=== PATIENT | female | born 1930 | race Caucasian/White ===

== ENCOUNTER 2018-06-01 21:58 | Emergency (ER) | payer OTHER ==
[~2018-06-01] VITALS: Ht 149.9 cm; Wt 46.3 kg
[2018-06-01] MEDS ORDERED: [UNRECOGNIZED DRUG - REMARK] (22:08)
[2018-06-01] MEDS ORDERED: [UNRECOGNIZED DRUG - REMARK] (22:08)
--- NOTE | 2018-06-01 22:15 | NUR ---
Patient bib RA. Patient AAOX4. Speech clear, speaks in complete sentences. No neuro deficits noted. Patient brought in for c/o diarrhea for a few days now. Patient has hx of SIBO (small intestinal bacterial overgrowth). Denies any vomiting or nausea. Respiratory even and unlabored, no cough, no sob. No cardiovascular distress noted. Patient in bed lowest position, sr up x2, call light within reach. Patient accompanied by son at bedside. Fall precautions implemented per protocol.
[2018-06-01 22:28] LABS: HEMOGLOBIN 13.1 g/dL (10.9-14.3); PLATELET COUNT (AUTO) 213 K/uL (179-408)
--- NOTE | 2018-06-01 22:30 | NUR ---
Female adjustment clerk accompanied female patient for Dr. Tobar during rectal exam.
[2018-06-01 22:35] LABS: BASOPHILS # (AUTO) 0.1 K/uL (0.0-8.0); BASOPHILS % (AUTO) 0.6 % (0.0-2.0); CARBON DIOXIDE 25 mmol/L (21-32); CHLORIDE 99 mmol/L (98-107); CREATININE 0.9 mg/dL (0.6-1.3); EOSINOPHILS # (AUTO) 0.1 K/uL (0.0-0.7); EOSINOPHILS % (AUTO) 0.7 % (0.0-7.0); GLUCOSE 126 mg/dL (74-106); HEMATOCRIT 39.5 % (31.2-41.9); LYMPHOCYTES % (AUTO) 10.3 % (20.5-51.5); MEAN CORPUSCULAR HEMOGLOBIN 29.6 uug (24.7-32.8); MEAN CORPUSCULAR HGB CONC 33 g/dL (32.3-35.6); MEAN CORPUSCULAR VOLUME 89.8 fL (75.5-95.3); NEUTROPHILS # (AUTO) 7.4 K/uL (1.8-8.9); NEUTROPHILS % (AUTO) 77.4 % (38.5-71.5); POTASSIUM 3.8 mmol/L (3.5-5.1); UREA NITROGEN, BLOOD 19 mg/dL (7-18); WHITE BLOOD COUNT (AUTO) 9.5 K/uL (3.8-11.8)
[2018-06-01 22:41] LABS: ALANINE AMINOTRANSFERASE 39 U/L (14-59); ALKALINE PHOSPHATASE 58 U/L (50-136); ASPARTATE AMINOTRANSFERASE 22 U/L (15-37); BILIRUBIN,DIRECT 0.2 mg/dL (0.0-0.2); BILIRUBIN,TOTAL 0.5 mg/dL (0.2-1.0); LIPASE 516 U/L (73-393); TOTAL PROTEIN, SERUM 6.2 g/dL (6.4-8.2)
--- NOTE | 2018-06-01 22:51 | NUR ---
Provided pt with warm blanker, no acute distress noted at this time.
--- NOTE | 2018-06-01 23:00 | NUR ---
[facility] call placed. Talked to Natan regarding patient. Awaiting call back from Ronaldo ROJAS.
[2018-06-01] MEDS ORDERED: LEVOTHYROXINE SODIUM 50 MCG (23:31)
[2018-06-01] MEDS ORDERED: SULFAMETHOXAZOLE/TRIMETHOPRIM (23:31)
[2018-06-01] MEDS ORDERED: WARFARIN SODIUM 2.5 MG (23:31)
[2018-06-01] MEDS ORDERED: LISINOPRIL 5 MG (23:31)
[2018-06-01] MEDS ORDERED: CALC-898 PO (23:32)
[2018-06-01] MEDS ORDERED: LACT1CAP73 PO (23:32)
[2018-06-01] MEDS ORDERED: CHOL100045 PO (23:32)
--- NOTE | 2018-06-01 23:33 | NUR ---
Patient discharged to home in stable conditon. Written and verbal after care instructions given. Patient verbalizes understanding of instructions. Patient ambulated with stable gait.
[2018-06-01 23:34] VITALS: BP 130/89
== END 2018-06-01 23:36 | disposition home or self-care (01) ==
LOC: ER 22:04
DX: R19.7 Diarrhea, unspecified (principal); I48.91 Unspecified atrial fibrillation; E03.9 Hypothyroidism, unspecified; Z79.01 Long term (current) use of anticoagulants; Z79.899 Other long term (current) drug therapy
CPT/HCPCS: 36415; 83690; 85025; 85730; 93005; A4663

== ENCOUNTER 2020-04-07 16:05 | Emergency (ER) | payer OTHER ==
[~2020-04-07] VITALS: Ht 152.4 cm; Wt 47.6 kg
[~2020-04-07 16:05] MED LIST: CALC-898 PO; CHOL100045 PO; LACT1CAP73 PO; LEVOTHYROXINE SODIUM 50 MCG; LISINOPRIL 5 MG; SULFAMETHOXAZOLE/TRIMETHOPRIM; WARFARIN SODIUM 2.5 MG; [UNRECOGNIZED DRUG - OTHER] IV ONE
--- NOTE | 2020-04-07 16:10 | NUR ---
Dr Cardona at the [facility] for MSE.
[2020-04-07] MEDS ORDERED: IV NORMAL SALINE 1000 ML BAG IV ONE (16:30)
[2020-04-07] MEDS ORDERED: PROCHLORPERAZINE EDISYLATE 10 MG/2 ML VIAL IV ONE (16:30)
[2020-04-07] MEDS ORDERED: ACETAMINOPHEN 325 MG TABLET PO ONE (16:30)
[2020-04-07] MEDS ORDERED: PROCHLORPERAZINE EDISYLATE 10 MG/2 ML VIAL ONE (16:42)
[2020-04-07] MEDS ORDERED: ACETAMINOPHEN 325 MG TABLET ONE (16:42)
[2020-04-07 16:47] LABS: BASOPHILS # (AUTO) 0.1 K/uL (0.0-8.0); BASOPHILS % (AUTO) 0.8 % (0.0-2.0); EOSINOPHILS # (AUTO) 0.1 K/uL (0.0-0.7); EOSINOPHILS % (AUTO) 1.2 % (0.0-7.0); HEMATOCRIT 42.6 % (31.2-41.9); HEMOGLOBIN 13.9 g/dL (10.9-14.3); LYMPHOCYTES # (AUTO) 1.9 K/uL (20.0-40.0); MEAN CORPUSCULAR HEMOGLOBIN 29.7 uug (24.7-32.8); MEAN CORPUSCULAR HGB CONC 33 g/dL (32.3-35.6); MEAN CORPUSCULAR VOLUME 90.8 fL (75.5-95.3); MONOCYTES # (AUTO) 0.8 K/uL (2.0-10.0); MONOCYTES % (AUTO) 8.8 % (0.0-11.0); NEUTROPHILS # (AUTO) 5.9 K/uL (1.8-8.9); NEUTROPHILS % (AUTO) 67.2 % (38.5-71.5); PLATELET COUNT (AUTO) 227 K/uL (179-408); RED BLOOD CELL COUNT(AUTO) 4.69 MIL/uL (3.63-4.92); WHITE BLOOD COUNT (AUTO) 8.8 K/uL (3.8-11.8)
[2020-04-07 16:55] LABS: CREATININE 0.9 mg/dL (0.6-1.3); POTASSIUM 3.9 mmol/L (3.5-5.1)
[2020-04-07] MEDS ORDERED: SWABABLE VALVE TRANSFER SET EA MC ONE (17:39)
[2020-04-07] MEDS ORDERED: IV NORMAL SALINE 250 ML IV ONE (17:39)
[2020-04-07] MEDS ORDERED: IOHEXOL 350 100 ML INFUS..BTL ONE (17:39)
[2020-04-07] MEDS ORDERED: KETOROLAC TROMETHAMINE 15 MG INJ IVP ONE (18:45)
[2020-04-07] MEDS ORDERED: CLINDAMYCIN PHOSPHATE IV 600 MG in IV DEXTROSE 5% 100 ML IV ONE (18:45)
[2020-04-07] MEDS ORDERED: KETOROLAC TROMETHAMINE 15 MG INJ ONE (18:46)
--- NOTE | 2020-04-07 18:52 | NUR ---
[facility] and [facility] provided.
[2020-04-07] MEDS ORDERED: CLINDAMYCIN PHOSPHATE 600 MG/4 ML VIAL ONE (18:59)
[2020-04-07] MEDS ORDERED: PHYTONADIONE 10 MG/1 ML AMPUL SQ ONE (20:45)
--- NOTE | 2020-04-07 20:48 | NUR ---
JUSTIN from [facility] [phone], called regarding covid test results. Lab has not processed the test, awaiting to be run.
--- NOTE | 2020-04-07 20:50 | NUR ---
Order needed for [facility]ra. Not availale in our Medication Order Sets. Contacted night time pharmacy and was told to contact compressor house operator to be able to get medicatio nfrom aerotriangulation specialist pharmacist.
[2020-04-07] MEDS ORDERED: LABETALOL HCL 100 MG/20 ML VIAL IV ONE ×2 (21:00→21:45)
--- NOTE | 2020-04-07 21:06 | NUR ---
Called warehouse order picker, MICHELLE Palacios for request to reach out to o/c pharmacist. Patient is in need of 4 Valent [facility] prior to transport. According to Suzanne, o/c pharmacist will come in to assist with medication dispense.
[2020-04-07] MEDS ORDERED: PHYTONADIONE 10 MG/1 ML AMPUL ONE (21:15)
[2020-04-07] MEDS ORDERED: LABETALOL HCL 100 MG/20 ML VIAL ONE (21:16)
--- NOTE | 2020-04-07 21:23 | NUR ---
Patients BP was 141/82 -- verified with Dr. Grant Sepulveda if Labetalol is still needed to be administered - was told to administer and keep BP <120 Systolic.
[2020-04-07] MEDS ORDERED: LORAZEPAM 2 MG/1 ML VIAL IV ONE (21:45)
[2020-04-07] MEDS ORDERED: LORAZEPAM 2 MG/1 ML VIAL ONE (22:05)
[2020-04-07 22:30] VITALS: BP 128/74
--- NOTE | 2020-04-07 22:49 | NUR ---
Per EPRChikis Garcia, patient will be transferred to another facility. Facility:[facility] Accepting Physician: Dr. Priest Floor: ICU Bed#: [id number] Phone number for report: [phone] Transport-CCT PRN ETA [id number]
== END 2020-04-07 23:59 | disposition short-term general hospital (02) ==
LOC: ER 16:06
DX: J69.0 Pneumonitis due to inhalation of food and vomit (principal); R09.02 Hypoxemia; I67.1 Cerebral aneurysm, nonruptured; M54.2 Cervicalgia; R79.1 Abnormal coagulation profile; I48.91 Unspecified atrial fibrillation; Z79.01 Long term (current) use of anticoagulants; E03.9 Hypothyroidism, unspecified; Z20.822 Contact with and (suspected) exposure to COVID-19
CPT/HCPCS: 36415; 70496; 70498; 71045; 80048; 84484; 85025; 85651; 85730; 87426; 96361; 96365; 96372; 96375 ×2; 99285; C9132; J0780; J1885; J2060; J3430; J3490 ×2; Q9967; 70030-TC; J7030; J7050